=== PATIENT | female | born 1980 | race Caucasian/White ===

== ENCOUNTER 2016-09-13 20:18 | Emergency (ER) | payer OTHER ==
[~2016-09-13 20:18] MED LIST: ALBUTEROL17 GM INH; BACITRACIN1 GM OINT TD; BACTRIM DS TABL1 TA2 PO; BENZONATATE PO; EXCEDRIN MIGRAI1 TA1; FLEXERIL10 MG PO; KEFLEX500 MG PO; MACRODANTIN PO; NO MEDICATIONS; NUVARING V1 VAG.RING; PREDNISONE PO; PYRIDIUM PO; VICODIN 5/500 T1 TAB PO; ZITHROMAX PO; ZOFRAN PO; ZOMIG ZMT5 MG/TAB PO; [UNRECOGNIZED DRUG - OTHER]; [UNRECOGNIZED DRUG - OTHER] PO
== END 2016-09-13 20:39 | disposition home or self-care (01) ==
LOC: SED 20:18
DX: S05.01XA Injury of conjunctiva and corneal abrasion without foreign body, right eye, initial encounter (principal); W22.8XXA Striking against or struck by other objects, initial encounter; Y93.89 Activity, other specified; Y92.9 Unspecified place or not applicable
CPT/HCPCS: 99283

== ENCOUNTER 2017-01-02 17:57 | Emergency (ER) | payer BC, OTHER ==
[~2017-01-02] VITALS: Ht 170.2 cm; Wt 112.9 kg
--- NOTE | ~2017-01-02 | CT101 ---
[facility]. [facility] A Service of [facility] RADIOLOGY TEXT RESULTS PATIENT: PHILIP HOLBROOK LOCATION: SED : 80 UNIT #: [id number] AGE: [address]: Ileana Van SEX: F ORDER DR: [id number] [address] [address] [id number] E MR#: [id number] Acc #: [id number] NAME: PHILIP HOLBROOK : 1980 SEX: F STUDY DATE/TIME: 01/02/2017 19:25 UNIT: SED ROOM: STUDY DESCRIPTION: CT Maxillofacial Area Wo Cont Attending Physician: Ileana Van Pa-C Ordering Physician: Franklin Cordoba M.D. Primary Care Physician: Kellie Cardoso Aprn MEDICAL IMAGING REPORT This report is preliminary unless electronic signature is present. EXAM Maxillofacial CT dated 01/02/2017 COMPARISON None. HISTORY Patient fell today with left-sided jaw pain and swelling. FINDINGS CT maxillofacial CT was obtained in the axial plane followed by coronal reformats. This CT examination was performed with one or more of the following radiation dose reduction techniques: automatic exposure control, adjustment of mA and/or kV according to patient size, and iterative reconstruction. Bilateral frontal, ethmoid, maxillary and sphenoid sinuses demonstrate minimal mucosal thickening along the floor of the right maxillary antrum. Ostiomeatal complex is widely patent. Mild S-shaped nasal septal deviation is seen. Imaged orbits with the ocular structures do not demonstrate any significant abnormality. There is diffuse fatty infiltration of bilateral parotid glands. No significant lymphadenopathy. Streak artifact from dental work limits evaluation. Mild degenerative changes are in the spine. IMPRESSION 1. No acute fracture. 2. Paranasal sinuses and the draining ostiomeatal complex are widely patent. 3. Not mentioned above, there are evi bullosa of bilateral middle turbinates. It is more prominent in the right. An incidental Homer cell is probably present in the left side too, benign. There is no significant soft tissue hematoma. [facility] A Service of [facility] RADIOLOGY TEXT RESULTS PATIENT: PHILIP HOLBROOK LOCATION: [facility] [place] : [birth year] UNIT #: [id number] AGE: [address]: Ileana Van SEX: F ORDER DR: Dictated by... Sharda Morales M.D. THIS IS AN ELECTRONICALLY VERIFIED REPORT Sharda Morales M.D. at 01/05/2017 9:16 AM CPR/christopher TD: 01/03/2017 10:04 JOB #: [id number] MEDICAL IMAGING REPORT Page 1 of 1
== END 2017-01-02 20:23 | disposition home or self-care (01) ==
LOC: SED 17:57
DX: S86.912A Strain of unspecified muscle(s) and tendon(s) at lower leg level, left leg, initial encounter (principal); S00.83XA Contusion of other part of head, initial encounter; R03.0 Elevated blood-pressure reading, without diagnosis of hypertension; W22.8XXA Striking against or struck by other objects, initial encounter
CPT/HCPCS: 29530; 70486; 99284